=== PATIENT | male | born 2000 | race Caucasian/White ===

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

== ENCOUNTER 2021-06-04 00:34 | Emergency (ER) | payer MEDICAID ==
[~2021-06-04] VITALS: Ht 170.2 cm; Wt 77.3 kg
[2021-06-04] MEDS ORDERED: CLIN300C63 PO (03:44)
[2021-06-04] MEDS ORDERED: clindamycin 150mg capsule PO ONE (03:45)
[2021-06-04 04:07] VITALS: BP 142/117
== END 2021-06-04 04:09 | disposition home or self-care (01) ==
LOC: ER 00:35
DX: L03.116 Cellulitis of left lower limb (principal); Z88.0 Allergy status to penicillin; Z88.1 Allergy status to other antibiotic agents; Z88.2 Allergy status to sulfonamides; Z79.899 Other long term (current) drug therapy
CPT/HCPCS: 99284

== ENCOUNTER 2022-05-20 19:06 | Emergency (ER) | payer MEDICAID ==
[~2022-05-20] VITALS: Ht 170.2 cm; Wt 68.2 kg
[2022-05-20 19:10] VITALS: BP 119/81
== END 2022-05-20 21:58 | disposition left against medical advice (07) ==
LOC: ER 19:07
DX: R06.02 Shortness of breath (principal); Z53.21 Procedure and treatment not carried out due to patient leaving prior to being seen by health care provider
CPT/HCPCS: 71046; 99281; 99283

== ENCOUNTER 2022-09-25 15:05 | Emergency (ER) | payer MEDICAID | END 2022-09-25 15:29 | disposition left against medical advice (07) | LOC: ER 15:06 | DX: Z04.89 Encounter for examination and observation for other specified reasons (principal); Z53.21 Procedure and treatment not carried out due to patient leaving prior to being seen by health care provider ==

== ENCOUNTER 2022-10-10 11:00 | Emergency (ER) | payer MEDICAID ==
[~2022-10-10] VITALS: Ht 170.2 cm; Wt 55.2 kg
[2022-10-10 11:31] LABS: BASOPHILS # (AUTO) 0.1 X10'3 (0-0.2); BASOPHILS % (AUTO) 0.7 % (0-1); EOSINOPHILS # (AUTO) 0.4 X10'3 (0-0.9); EOSINOPHILS % (AUTO) 2.6 % (0-6); HEMATOCRIT 44.1 % (42.0-52.0); HEMOGLOBIN 15.3 g/dl (14.0-17.9); LYMPHOCYTES # (AUTO) 0.9 X10'3 (1.1-4.8); LYMPHOCYTES % (AUTO) 5.6 % (21-51); MEAN CORPUSCULAR HEMOGLOBIN 32.5 PG (27.0-31.0); MEAN CORPUSCULAR HGB CONC 34.6 g/dL (33.0-36.5); MEAN CORPUSCULAR VOLUME 93.8 FL (78-98); MEAN PLATELET VOLUME 9.1 FL (7.4-10.4); MONOCYTES # (AUTO) 0.9 X10'3 (0-0.9); MONOCYTES % (AUTO) 5.4 % (2-12); NEUTROPHILS # (AUTO) 13.8 X10'3 (1.8-7.7); NEUTROPHILS % (AUTO) 85.7 % (42-75); PLATELET COUNT 75 X10'3 (140-440); RED CELL DISTRIBUTION WIDTH 13.9 % (11.5-14.5); WHITE BLOOD COUNT 16.1 X10'3 (4.5-11.0)
[2022-10-10 11:52] LABS: ALANINE AMINOTRANSFERASE 35 U/L (12-78); ALBUMIN 3.2 G/DL (3.4-5.0); ALBUMIN/GLOBULIN RATIO 0.8 (1.1-1.5); ALKALINE PHOSPHATASE 180 IU/L (46-116); ANION GAP 4 (8-16); ASPARTATE AMINO TRANSFERASE 42 U/L (10-37); BLOOD UREA NITROGEN 10 MG/DL (7-18); CALCIUM 9.1 MG/DL (8.5-10.1); CHLORIDE 102 MMOL/L (99-107); CREATININE 0.77 MG/DL (0.60-1.10); GLUCOSE 97 MG/DL (70-104); POTASSIUM 4.4 MMOL/L (3.5-5.1); SODIUM 137 MMOL/L (135-145); TOTAL CARBON DIOXIDE 30.8 MMOL/L (24-32); eCRCL 118 ML/MIN; eGFR > 90 ML/MIN
--- NOTE | 2022-10-10 13:58 | NUR ---
PT NOTIFIED THIS RN THAT HE IS FEELING HIS THROAT IS INCREASINGLY SWOLLEN AND IS SOB. LUNG SOUNDS CLEAR BILATERALLY, SPO2 99% ON ROOM AIR. PT IS PROTECTING AIRWAY. VITAL SIGNS RECHECKED AND STABLE.
[2022-10-10] MEDS ORDERED: metroNIDAZOLE-Flagyl 500mg/NS 100 ML IV STA (14:44)
[2022-10-10] MEDS ORDERED: normal saline 1000ML IV soln IV ONE (14:45)
[2022-10-10] MEDS ORDERED: CefTRIAXone 2gm/D5W 50ml BAG 50 ML IV ONE (14:45)
[2022-10-10] MEDS ORDERED: iohexol 300mg/ml 100ml inj. ONE (15:07)
[2022-10-10 15:50] VITALS: BP 154/91; PULSE 94; TEMP 98.8; O2SAT 98
[2022-10-10] MEDS ORDERED: dexamethasone sod phosphate 10mg/ml inj IV STA (16:20)
[2022-10-10] MEDS ORDERED: CLIN-15 PO (16:46)
[2022-10-10] MEDS ORDERED: OXYC-145 PO (16:46)
[2022-10-10] MEDS ORDERED: DOXY-356 PO (16:46)
[2022-10-10] MEDS ORDERED: oxyCODONE/APAP 5-325mg tablet PO STA (17:25)
[2022-10-10 17:30] VITALS: RESP 20
== END 2022-10-10 17:33 | disposition home or self-care (01) ==
LOC: ER 11:00
DX: L03.211 Cellulitis of face (principal); I88.9 Nonspecific lymphadenitis, unspecified; Z85.9 Personal history of malignant neoplasm, unspecified; Z72.89 Other problems related to lifestyle; Z94.4 Liver transplant status; Z88.0 Allergy status to penicillin; Z88.1 Allergy status to other antibiotic agents; Z88.2 Allergy status to sulfonamides; Z79.2 Long term (current) use of antibiotics; Z79.899 Other long term (current) drug therapy
CPT/HCPCS: 36415; 70491; 71045; 80053; 83605; 84145; 85025; 87040; 96365; 96368; 99285; J0696; J1100; J3490; J7030; Q9967

== ENCOUNTER 2023-09-11 09:11 | Emergency (ER) | payer MEDICAID ==
[~2023-09-11] VITALS: Ht 170.2 cm; Wt 68.2 kg
[~2023-09-11 09:11] MED LIST changes: +OXYC-145 PO
[2023-09-11 09:36] VITALS: TEMP 97.2
[2023-09-11 10:30] LABS: BASOPHILS % (AUTO) 0.5 % (0-1); EOSINOPHILS # (AUTO) 0.2 X10'3 (0-0.9); HEMATOCRIT 39.4 % (42.0-52.0); HEMOGLOBIN 13.4 g/dl (14.0-17.9); LYMPHOCYTES # (AUTO) 0.6 X10'3 (1.1-4.8); LYMPHOCYTES % (AUTO) 14.1 % (21-51); MEAN CORPUSCULAR HEMOGLOBIN 31.7 PG (27.0-31.0); MEAN CORPUSCULAR HGB CONC 33.9 g/dL (33.0-36.5); MEAN CORPUSCULAR VOLUME 93.3 FL (78-98); MONOCYTES # (AUTO) 0.2 X10'3 (0-0.9); MONOCYTES % (AUTO) 4.8 % (2-12); NEUTROPHILS % (AUTO) 74.6 % (42-75); RED BLOOD COUNT 4.23 X10'6 (4.70-6.10)
[2023-09-11 10:37] LABS: APTT 27 SECONDS (22-32); INR 1.2 INR; PROTHROMBIN TIME 12.9 SECONDS (9.0-12.0)
[2023-09-11 10:38] LABS: ALANINE AMINOTRANSFERASE 402 U/L (12-78); ALBUMIN 2.5 G/DL (3.4-5.0); ALKALINE PHOSPHATASE 857 IU/L (46-116); ANION GAP 7 (8-16); ASPARTATE AMINO TRANSFERASE 317 U/L (10-37); BILIRUBIN,TOTAL 7.4 MG/DL (0.1-1.0); BLOOD UREA NITROGEN 13 MG/DL (7-18); BUN/CREATININE RATIO 17.1 (10.0-20.0); CALCIUM 8.5 MG/DL (8.5-10.1); CHLORIDE 104 MMOL/L (99-107); CREATININE 0.76 MG/DL (0.60-1.10); GLUCOSE 142 MG/DL (70-104); POTASSIUM 3.3 MMOL/L (3.5-5.1); SODIUM 139 MMOL/L (135-145); TOTAL CARBON DIOXIDE 28.3 MMOL/L (24-32); eCRCL 143 ML/MIN; eGFR > 90 ML/MIN
[2023-09-11 10:58] LABS: PLATELET COUNT 50 X10'3 (140-440)
[2023-09-11 11:00] LABS: ALBUMIN/GLOBULIN RATIO 0.7 (1.1-1.5); TOTAL PROTEIN 5.9 G/DL (6.4-8.2)
[2023-09-11] MEDS: diphenhydrAMINE 50 mg/ml inj IV ONE (11:02)
[2023-09-11] MEDS: normal saline 1000ml 1,000 ML IV ONE (11:02)
[2023-09-11] MEDS: lactulose 20gm/30ml cup PO ONE (11:03)
[2023-09-11 14:43] LABS: BILIRUBIN,URINE LARGE (Neg); CLARITY,URINE SLIGHTLY CLOUDY (Clear); COLOR,URINE YELLOW (Yellow); GLUCOSE, URINE 100 mg/dl (Neg); KETONES,URINE TRACE mg/dl (Neg); LEUKOCYTE ESTERASE ,URINE NEGATIVE (Neg); NITRITES, URINE NEGATIVE (Neg); OCCULT BLOOD,URINE NEGATIVE (Neg); PROTEIN,URINE NEGATIVE (Neg)
[2023-09-11 14:48] LABS: UA COLLECTION TYPE CLN CATCH MIDSTREAM
[2023-09-11 15:13] LABS: SQUAMOUS EPITHELIAL CELL,UR NONE SEEN /LPF (FEW)
[2023-09-11 15:14] LABS: BACTERIA,URINE NONE SEEN /HPF (Neg); CAL OXALATE CRYSTALS 1+ /HPF (NEGATIVE); RBC,URINE NONE SEEN /HPF (0-2); WBC,URINE 0-4 /HPF (0-4)
[2023-09-11] MEDS ORDERED: LACT10SO7 PO (15:30)
[2023-09-11 16:37] VITALS: BP 117/75; PULSE 58; RESP 16; O2SAT 100
[2023-09-12 17:12] LABS: HBSAG SCREEN Negative (Negative); HEP A AB, IGM Negative (Negative); HEP B CORE AB, IGM Negative (Negative); HEPATITIS C VIRUS ANTIBODY Non Reactive (Non Reactive)
== END 2023-09-11 16:42 | disposition left against medical advice (07) ==
LOC: ER 09:11
DX: K76.82 Hepatic encephalopathy (principal); R74.8 Abnormal levels of other serum enzymes; Z88.1 Allergy status to other antibiotic agents; Z88.0 Allergy status to penicillin; Z88.2 Allergy status to sulfonamides; Z79.899 Other long term (current) drug therapy; Z85.89 Personal history of malignant neoplasm of other organs and systems; Z98.890 Other specified postprocedural states
CPT/HCPCS: 36415; 76700; 80053; 80074; 81001; 82140; 85025; 85610; 85730; 96361; 96374; 99285; J1200; J7030

== ENCOUNTER 2023-11-01 21:56 | Emergency (ER) | payer MEDICAID ==
[~2023-11-01] VITALS: Ht 170.2 cm; Wt 64.1 kg
[~2023-11-01 21:56] MED LIST changes: +LACT10SO7 PO
[2023-11-01 21:59] VITALS: TEMP 97.9
[2023-11-01 22:59] VITALS: BP 133/84; PULSE 63; RESP 18; O2SAT 98
== END 2023-11-02 00:24 | disposition left against medical advice (07) ==
LOC: ER 21:57
DX: R60.0 Localized edema (principal); R17 Unspecified jaundice; Z53.21 Procedure and treatment not carried out due to patient leaving prior to being seen by health care provider

== ENCOUNTER 2024-04-17 15:13 | Emergency (ER) | payer MEDICAID ==
[~2024-04-17] VITALS: Ht 170.2 cm; Wt 64.6 kg
[2024-04-17] MEDS ORDERED: CLIN-97 PO (16:00)
[2024-04-17 16:01] LABS: EOSINOPHILS # (AUTO) 0.2 X10'3 (0-0.9); HEMOGLOBIN 13.6 g/dl (14.0-17.9); LYMPHOCYTES # (AUTO) 0.7 X10'3 (1.1-4.8)
[2024-04-17 16:03] LABS: BASOPHILS % (AUTO) 0.7 % (0-1); EOSINOPHILS % (AUTO) 3.4 % (0-6); HEMATOCRIT 38.9 % (42.0-52.0); LYMPHOCYTES % (AUTO) 15.2 % (21-51); MEAN CORPUSCULAR HGB CONC 34.9 g/dL (33.0-36.5); MEAN CORPUSCULAR VOLUME 91.5 FL (78-98); MEAN PLATELET VOLUME 9.1 FL (7.4-10.4); MONOCYTES # (AUTO) 0.4 X10'3 (0-0.9); MONOCYTES % (AUTO) 8.3 % (2-12); NEUTROPHILS # (AUTO) 3.4 X10'3 (1.8-7.7); NEUTROPHILS % (AUTO) 72.4 % (42-75); RED BLOOD COUNT 4.25 X10'6 (4.70-6.10); RED CELL DISTRIBUTION WIDTH 24.3 % (11.5-14.5); WHITE BLOOD COUNT 4.8 X10'3 (4.5-11.0)
[2024-04-17 16:20] VITALS: BP 148/92; PULSE 69; RESP 16; TEMP 98.2; O2SAT 99
[2024-04-17 16:30] LABS: ANION GAP 7 (8-16); BLOOD UREA NITROGEN 11 MG/DL (7-18); CALCIUM 8.7 MG/DL (8.5-10.1); CHLORIDE 105 MMOL/L (99-107); SODIUM 141 MMOL/L (135-145)
[2024-04-17 16:37] LABS: PLATELET COUNT 38 X10'3 (140-440)
[2024-04-17 16:50] LABS: ALBUMIN 2.2 G/DL (3.4-5.0); BUN/CREATININE RATIO 20.4 (10.0-20.0); CREATININE 0.54 MG/DL (0.60-1.10); GLUCOSE 68 MG/DL (70-104); POTASSIUM 3.1 MMOL/L (3.5-5.1); eCRCL 196 ML/MIN; eGFR > 90 ML/MIN
[2024-04-17 17:14] LABS: ANISOCYTOSIS 4+; LARGE PLATELETS FEW; MICROCYTOSIS 2+; PLATELET ESTIMATE DECREASED; TARGET CELLS 1+
== END 2024-04-17 16:21 | disposition home or self-care (01) ==
LOC: ER 15:14
DX: L03.211 Cellulitis of face (principal); Z94.4 Liver transplant status; Z88.0 Allergy status to penicillin; Z88.1 Allergy status to other antibiotic agents; Z88.2 Allergy status to sulfonamides
CPT/HCPCS: 36415; 80048; 84145; 85008; 85025; 99283

== ENCOUNTER 2024-05-04 22:05 | Emergency (ER) | payer MEDICAID ==
[~2024-05-04] VITALS: Ht 170.2 cm; Wt 63.2 kg
[~2024-05-04 22:05] MED LIST changes: +CLIN-97 PO
[2024-05-04 22:10] VITALS: BP 130/91; PULSE 70; RESP 18; O2SAT 98
== END 2024-05-05 00:13 | disposition left against medical advice (07) ==
LOC: ER 22:06
DX: R22.0 Localized swelling, mass and lump, head (principal); Z88.0 Allergy status to penicillin; Z88.1 Allergy status to other antibiotic agents; Z88.2 Allergy status to sulfonamides; Z53.21 Procedure and treatment not carried out due to patient leaving prior to being seen by health care provider

== ENCOUNTER 2024-05-13 19:36 | Emergency (ER) | payer MEDICAID ==
[~2024-05-13] VITALS: Ht 170.2 cm; Wt 61.6 kg
[2024-05-13 21:27] VITALS: BP 130/93; PULSE 72; O2SAT 100
[2024-05-13 21:28] VITALS: RESP 16
[2024-05-13 22:11] VITALS: TEMP 99.9
== END 2024-05-13 22:13 | disposition left against medical advice (07) ==
LOC: ER 19:37
DX: R51.9 Headache, unspecified (principal); Z88.0 Allergy status to penicillin; Z88.2 Allergy status to sulfonamides; Z88.1 Allergy status to other antibiotic agents; Z88.8 Allergy status to other drugs, medicaments and biological substances; Z94.4 Liver transplant status
CPT/HCPCS: 99284

== ENCOUNTER 2024-09-26 09:47 | Emergency (ER) | payer MEDICAID ==
[~2024-09-26] VITALS: Ht 170.2 cm; Wt 57.4 kg
[~2024-09-26 09:47] MED LIST changes: +CLIN-224 PO; -CLIN-97 PO
[2024-09-26 09:48] VITALS: BP 139/91; PULSE 99; RESP 16; TEMP 98.6; O2SAT 98
--- NOTE | 2024-09-26 09:59 | Physician Documentation ---
History of Present Illness Stated Complaint: ABD PAIN Primary Medical Doctor: [facility] Presents to the emergency department for evaluation of nausea and vomiting yesterday for approximately 2 hours. Denies any current nausea or vomit. Reports that he may have smoked too much marijuana mixed with tobacco frequently makes him nauseated. Denies any abdominal pain at this time. Urine output and frequency are normal. Reports that he took off work today and would like a work note. Medication Reconciliation Allergies: Coded Allergies: Penicillins (Verified Allergy, Intermediate, 05/04/24) vancomycin (Verified Allergy, Intermediate, RASH, ITCHING, 05/04/24) Sulfa (Sulfonamide Antibiotics) (Unverified Allergy, Unknown, 05/04/24) Scheduled Cetirizine HCl (Zyrtec), 1 TAB PO DAILY, (Reported) Clindamycin HCL* (Clindamycin HCL*), 1 CAP PO Q6H Escitalopram Oxalate (Escitalopram Oxalate), 1 TAB PO DAILY, (Reported) Lactulose (Lactulose), 30 ML PO DAILY Magnesium Oxide (Magnesium), 1 CAP PO Q12H, (Reported) Melatonin (Melatonin), 2 TAB PO HS, (Reported) Phytonadione (Vit K1) (Phytonadione), 2 TAB PO DAILY, (Reported) Rifaximin (Xifaxan), 1 TAB PO Q12H, (Reported) Tacrolimus (Envarsus Xr), 1 TAB PO DAILY, (Reported) Scheduled PRN Acetaminophen (Acetaminophen), 1 TAB PO BID PRN for pain, (Reported) Diphenhydramine Hcl* (Benadryl*), 25 MG PO BID PRN for anxiety, (Reported) Oxycodone HCl/Acetaminophen (Percocet 5-325 mg Tablet), 1 TAB PO TID PRN PRN for pain Past Medical History Past Medical History: *CANCER* Past Surgical History: other Other Past Surgical History: Liver transplant Alcohol Use: Sober Drug Use: none Lives with: Mother, Father Lives In: Home Occupation: student Review of Systems ROS As stated above in the HPI, otherwise all systems are reviewed and negative. Physical Exam Physical Exam VITALS: Reviewed and as above. GENERAL: Alert, no apparent distress. HEENT: Normocephalic, atraumatic, PERRL, EOMI, dry mucosa, no erythema RESPIRATORY: Lungs clear, normal breath sounds, no respiratory distress. CHEST: No accessory muscle use, no retractions CV: Regular rate, rhythm, no edema, no murmur, No: JVD GI: Soft, non-tender, bowels sounds present, no rebound, guarding, or rigidity BACK: No CVA tenderness, or swelling MUSCULOSKELETAL No deformities, no edema SKIN: Warm and dry, no rash NEURO: Oriented x4, No motor or sensory deficit PSYCH: Normal mood and affect, no agitation Medical Decision Making Findings General medical evaluation with no abnormalities or concerns at this time. Work note provided. Departure Disposition: HOME / SELF CARE / HOMELESS Impression: Primary Impression: Encounter for medical assessment Condition: Stable Discharge Instructions: Nausea and Vomiting, Adult, [id number] Departure Forms: Excuse form Work or School Excused From: Work Excuse beginning now through the following date: Sep 26, 2024 May Return but still avoid physical Activity from now until: Sep 27, 2024 May Return to full physical activity as of: Sep 27, 2024 Referrals: NO PRIMARY CARE PROVIDER (PCP) Education Educated regarding: treatment, need for follow up HOUSTON GEORGE Sep 26, 2024 09:59
== END 2024-09-26 10:06 | disposition home or self-care (01) ==
LOC: ER 09:47
DX: R11.2 Nausea with vomiting, unspecified (principal); Z88.0 Allergy status to penicillin; Z88.1 Allergy status to other antibiotic agents; Z88.2 Allergy status to sulfonamides; Z79.899 Other long term (current) drug therapy
CPT/HCPCS: 99281

== ENCOUNTER 2024-10-20 00:41 | Emergency (ER) | payer MEDICAID ==
[~2024-10-20] VITALS: Ht 172.7 cm; Wt 50.8 kg
[2024-10-20 00:51] VITALS: BP 151/101; PULSE 80; TEMP 98.6; O2SAT 99
--- NOTE | 2024-10-20 01:16 | Physician Documentation ---
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 No obvious trigger provocation. He does have known history of poor dentition. Pain got markedly worse for the last day or so. He noticed some pus coming out from under the crown. Pain radiates into his ear. Denies any difficulty opening his mouth, any voice changes. Denies any difficulty breathing. No fever or chills. No headache. No vision changes. Compliant with all his meds. Smokes marijuana. Denies drug use. Medication Reconciliation Allergies: Coded Allergies: Penicillins (Verified Allergy, Intermediate, 10/20/24) vancomycin (Verified Allergy, Intermediate, RASH, ITCHING, 10/20/24) Sulfa (Sulfonamide Antibiotics) (Unverified Allergy, Unknown, 10/20/24) Scheduled Cetirizine HCl (Zyrtec), 1 TAB PO DAILY, (Reported) Clindamycin HCL* (Clindamycin HCL*), 1 CAP PO Q6H Escitalopram Oxalate (Escitalopram Oxalate), 1 TAB PO DAILY, (Reported) Lactulose (Lactulose), 30 ML PO DAILY Magnesium Oxide (Magnesium), 1 CAP PO Q12H, (Reported) Melatonin (Melatonin), 2 TAB PO HS, (Reported) Phytonadione (Vit K1) (Phytonadione), 2 TAB PO DAILY, (Reported) Rifaximin (Xifaxan), 1 TAB PO Q12H, (Reported) Tacrolimus (Envarsus Xr), 1 TAB PO DAILY, (Reported) Scheduled PRN Acetaminophen (Acetaminophen), 1 TAB PO BID PRN for pain, (Reported) Diphenhydramine Hcl* (Benadryl*), 25 MG PO BID PRN for anxiety, (Reported) Oxycodone HCl/Acetaminophen (Percocet 5-325 mg Tablet), 1 TAB PO TID PRN PRN for pain Past Medical History Past Medical History: *CANCER* Past Surgical History: other Other Past Surgical History: Liver transplant Alcohol Use: Sober Drug Use: none Lives with: Mother, Father Lives In: Home Occupation: student Review of Systems ROS 10 point review of systems was performed and unless noted above in HPI is negative for acute process/complaint. Physical Exam Vital Signs: Temperature: 98.6, Source: Temporal, Heart Rate: 80, Respiratory Rate: 15, BP: 151/101, Pulse Oximetry: 99, Weight: 50.750 Physical Exam Physical examination: GENERAL: Awake, alert, oriented, GCS 15, no apparent distress, chronically ill appearing, answers questions, follows commands appropriately. HEENT: Atraumatic, normocephalic, pupils equal, extraocular muscles intact Active gross movements, sclerae mildly icteric, mucus membranes moist, no stridor. NECK: Midline, no JVD CARDIOVASCULAR: Good skin perfusion without evidence of pallor, mottling. PULMONARY: Nonlabored, symmetric chest rise, no audible wheezing, no accessory muscle use, no respiratory distress, speaking in full sentences. GASTROINTESTINAL: Not distended. NEUROLOGIC: Lucid with normal mental status. Normal facial symmetry. Moves all extremities symmetrically and with purpose. No truncal ataxia. Speech is fluid without evidence of dysarthria or aphasia, no focal deficits appreciated. EXTREMITIES: Acute deformities Skin: warm, dry, noticeable jaundice PSYCHIATRIC: Normal affect, normal insight, normal concentration. Focused exam: [Poor dentition noted. There is a crown on the left lower premolar and severe caries on the left 1st molar. No abscess. No fluctuance. No tenderness to palpation of buccal gumline. There is no trismus. No floor of the mouth elevation. No hot potato voice. No drooling. No submandibular erythema.] Progress Results/Orders Results/Orders Vital Signs 10/20/24 00:51 Temp 98.6 Pulse 80 Resp 15 B/P (MAP) 151/101 Pulse Ox 99 Medical Decision Making Findings Facility Status: ED Holds, [facility] process The plan was discussed with the patient, who demonstrates clear understanding of the plan and is in agreement with the plan unless otherwise noted in the chart. All questions have been answered, all concerns were addressed unless otherwise documented. I was available throughout their ED stay for frequent reassessment and questions. Differential Diagnoses (considered and possible or likely): [Dental pain, dental infection, dental abscess, less likely osteomyelitis of the jaw, clinically not consistent with a Alen's angina, mastoiditis] ??Differential Diagnoses (considered and unlikely, not requiring evaluation currently): [No evidence of peritonsillar abscess, unlikely retropharyngeal abscess.] MDM Data Please see [facility] for the following: Independent Historians and external Records Review. Historian: [Patient] Independent Historians: ?[Record review] Medication Management: [Reviewed medication list] Social History and determinants: [Reviewed] Please see the body of the note for the following: Any independent interpretations of ECG, imaging studies. All vitals signs/haemodynamics, ordered tests were independently reviewed and interpreted by myself. Nursing triage complaint and vitals reviewed, additional nursing notes were reviewed as available and I agree unless otherwise noted or documented in contra diction in the chart Vital Signs: Independently reviewed Labs: Independently interpreted Imaging: Independently interpreted Old Medical Records: Independently reviewed, see [facility] for relevant summary and information Pulse Oximetry: [99%] interpreted as [normal on room air] by me F Additionally notably showing: [Hemodynamically stable] Tests considered but not ordered include: [Hematologic workup and imaging has been considered but does not appear to be necessary given clinical nature of diagnosis] Social Determinants of Health Impact: Patient was evaluated in [facility] [place] access to healthcare due to below par ratio of patient to medical providers. [] Comorbid Conditions Impacting Present Evaluation and Care/Treatment: [Multiple, see list] Management Discussions with other Healthcare Providers: [None] Treatment and Disposition Medication Management (Given or considered): [Initial dose of antibiotics, pain management]. See EMR for details Consideration for Hospitalization/Escalation/Deescalation of Care: Admission for observation has been considered, [however the patient is able to tolerate p.o., their symptoms are controlled, they are able to rely on oral medications, and their chief complaint/diagnosis can be managed on outpatient basis.] ?ED Course:?[No clinical deterioration.] ?Shared decision making:?[Patient is hemodynamically stable for discharge home with follow with their primary care provider. [ ] Specific and cautious return precautions provided and discussed with full understanding. Any incidental findings were also discussed and follow up recommendations given. [] All questions answered. Patient/family were able to verbalize back return precautions. Patient/family agree to plan. Copies of imaging and laboratory studies were provided.] Code status:?FULL Please see the full Electronic Medical Record for full details of nursing documentation, medications list, other records of complete past medical history and conditions, vital signs, laboratory studies, and any radiologic study interpretations by radiologists. Portions of this note were completed using Retrevo dictation software and as a result there may exist minor errors in spelling. I have reviewed elements of past family and social history and agree as included in note. Departure Disposition: HOME / SELF CARE / HOMELESS Impression: Primary Impression: Toothache Additional Impression: Dental abscess Condition: Improved Discharge Instructions: Dental Pain Additional Instructions: Return to emergency department immediately if his symptoms worsen, return if they do not begin to improve after several days of antibiotics. Referrals: NO PRIMARY CARE PROVIDER (PCP) Prescriptions Clindamycin HCl (Clindamycin HCl) 150 Mg Capsule 3 CAP PO Q8H for 10 Days, #90 CAP Prov: CATHRYN FERRER DO 10/20/24 Naproxen (Naproxen) 375 Mg Tablet 1 TAB PO Q12H for pain for 30 Days, #60 TAB 0 Refills with food Prov: CATHRYN FERRER DO 10/20/24 ONDANSETRON ODT 4mg tablet (ONDANSETRON ODT) 4 Mg Tab.rapdis 1 TAB PO Q6H PRN PRN for nausea/vomiting for 4 Days, #16 TAB 0 Refills Prov: CATHRYN FERRER DO 10/20/24 Hydrocodone Bit/Acetaminophen 5/325 MG ([place] 5/325 MG) 5 Mg/325 Mg Tablet 1 TAB PO Q6H PRN for pain, #14 TAB Prov: CATHRYN FERRER DO 10/20/24 Education Educated: Patient Educated regarding: diagnosis, treatment, prognosis, need for follow up Signature Scribe Signature: No scribe Attestation: This note accurately reflects clinical decisions, work performed by myself, DO CARISSA Dela Cruz NICHOLAS M DO Oct 20, 2024 01:16
[2024-10-20] MEDS ORDERED: NAPR-1166 PO (01:29)
[2024-10-20] MEDS ORDERED: CLIN-14 PO (01:29)
[2024-10-20] MEDS ORDERED: HYDR-3965 PO (01:29)
[2024-10-20] MEDS ORDERED: ONDA-243 PO (01:29)
[2024-10-20] MEDS: ketorolac trometh 30MG/ML vial 30 MG/ML VIAL IM ONE (01:50)
[2024-10-20 01:51] VITALS: RESP 16
[2024-10-20] MEDS: HYDROcodone/acetaminophen 5mg/325mg tablet PO ONE (01:51)
[2024-10-20] MEDS: ciprofloxacin 250mg tablet PO ONE (01:51)
== END 2024-10-20 02:01 | disposition home or self-care (01) ==
LOC: ER 00:42
DX: K04.7 Periapical abscess without sinus (principal); F12.90 Cannabis use, unspecified, uncomplicated; Z88.0 Allergy status to penicillin; Z88.1 Allergy status to other antibiotic agents; Z88.2 Allergy status to sulfonamides; Z88.8 Allergy status to other drugs, medicaments and biological substances
CPT/HCPCS: 96372; 99284; J1885

== ENCOUNTER 2025-01-17 10:43 | Emergency (ER) | payer MEDICAID ==
[~2025-01-17] VITALS: Ht 170.2 cm; Wt 61.6 kg
[~2025-01-17 10:43] MED LIST changes: +NAPR-1166 PO; +ONDA-243 PO
[2025-01-17 11:44] LABS: LEUKOCYTE ESTERASE ,URINE LARGE (Neg); NITRITES, URINE POSITIVE (Neg); OCCULT BLOOD,URINE MODERATE (Neg); UA COLLECTION TYPE CLN CATCH MIDSTREAM
[2025-01-17 11:52] LABS: SQUAMOUS EPITHELIAL CELL,UR FEW /LPF (FEW)
[2025-01-17 11:53] LABS: WBC CLUMPS,URINE MANY /HPF (NEGATIVE)
[2025-01-17] MEDS ORDERED: NITR100C11 PO (12:48)
--- NOTE | 2025-01-17 12:48 | Physician Documentation ---
History of Present Illness ~ Chief Complaint: Blood in Urine Stated Complaint: BLOOD IN URINE Time Seen by MD: 11:41 OK to notify your PCP?: Yes Primary Medical Doctor: NICOLAS BLACKWELL Source: patient Mode of Arrival: POV Exam Limitations: no limitations HPI He reports having dark urine for the past few months but he attributed this to his liver disease. Pt presents to ED for blood in urine since last night. Pt also complaining of right flank pain and bladder pain since last night also. Pt is in stage 1 liver failure. Denies any fevers, nausea, vomiting or diarrhea. Medication Reconciliation Allergies: Coded Allergies: Penicillins (Verified Allergy, Intermediate, 01/17/25) vancomycin (Verified Allergy, Intermediate, RASH, ITCHING, 01/17/25) Sulfa (Sulfonamide Antibiotics) (Unverified Allergy, Unknown, 01/17/25) Scheduled Cetirizine HCl (Zyrtec), 1 TAB PO DAILY, (Reported) Clindamycin HCL* (Clindamycin HCL*), 1 CAP PO Q6H Escitalopram Oxalate (Escitalopram Oxalate), 1 TAB PO DAILY, (Reported) Lactulose (Lactulose), 30 ML PO DAILY Magnesium Oxide (Magnesium), 1 CAP PO Q12H, (Reported) Melatonin (Melatonin), 2 TAB PO HS, (Reported) Naproxen (Naproxen), 1 TAB PO Q12H Nitrofurantoin/Nitrofuran Mac (Nitrofurantoin [place]-Mcr 100 Mg), 1 CAP PO Q12H Phytonadione (Vit K1) (Phytonadione), 2 TAB PO DAILY, (Reported) Rifaximin (Xifaxan), 1 TAB PO Q12H, (Reported) Tacrolimus (Envarsus Xr), 1 TAB PO DAILY, (Reported) Scheduled PRN Acetaminophen (Acetaminophen), 1 TAB PO BID PRN for pain, (Reported) Diphenhydramine Hcl* (Benadryl*), 25 MG PO BID PRN for anxiety, (Reported) ONDANSETRON ODT 4mg tablet (Ondansetron Odt), 1 TAB PO Q6H PRN PRN for nausea/vomiting Oxycodone HCl/Acetaminophen (Percocet 5-325 mg Tablet), 1 TAB PO TID PRN PRN for pain Past Medical History Past Medical History: *CANCER* Past Surgical History: other Other Past Surgical History: Liver transplant Alcohol Use: Sober Drug Use: none Lives with: Mother, Father Lives In: Home Occupation: student Review of Systems All Other Systems at this time: Reviewed and Negative Physical Exam Vital Signs: RN Vital Signs have been reviewed: Yes, Temperature: 98.5, Source: Oral, Heart Rate: 90, Respiratory Rate: 18, BP: 154/94, Pulse Oximetry: 99, Weight: 61.600 Oxygen Flow Rate: 0 Pulse Oximetry Reflects: adequate oxygenation Physical Exam General: Alert, no distress. HEENT: No injection, moist mucous membranes. icteric sclera bilaterally. Neck: Full range of motion. Respiratory: No respiratory distress, equal chest rise and fall. Chest: No accessory muscle use. Cardiovascular: Regular rate and rhythm. Back: No CVA tenderness. Gastrointestinal: Nondistended. Extremities: Normal range of motion, no deformity. Neurologic: Oriented x4. Psychiatric: Normal mood and affect. Skin: warm and dry. Jaundice. Progress Results/Orders Reviewed/noted all lab results: Yes Results/Orders Completed Orders - IZABEL STONE [employer]STRU[employer] FACILITATOR Nitrofur Sioux/Nitrofuran Macr (Macrobid (01/17/25 12:50) Medications Received in ER Medications (Trade) Dose Ordered Sig/Ollie Route PRN Reason Start Time Stop Time Status Last Admin Dose Admin (MacroBID capsule) 100 mg ONCE ONCE PO 01/17/25 12:50 01/17/25 12:52 DC 01/17/25 12:57 100 MG Vital Signs 01/17/25 01/17/25 10:57 13:05 Temp 98.5 98.5 Pulse 90 71 Resp 18 16 B/P (MAP) 154/94 155/72 Pulse Ox 99 99 O2 Flow Rate 0 Laboratory Tests Test 01/17/25 11:01 Urine Specimen Description Cln catch midstream Urine Color Nika Urine Clarity Turbid Urine pH 7.0 Urine Specific [place] 1.020 Urine Protein >=300 H Urine Glucose (UA) 100 H Urine Ketones Trace H Urine Occult Blood Moderate H Urine Nitrite Positive H Urine Bilirubin Large Urine Urobilinogen >=8.0 H Urine Leukocyte Esterase Large H Urine RBC Tntc Urine WBC Tntc H Urine WBC Clumps Many Urine Squamous Epithelial Cells Few Urine Bacteria 4+ Urine Culture Indicated Indicated Volume Urine Centrifuged 10 ml Urine Comment Microbiology Date/Time Source Procedure Growth Status 01/17/25 11:53 Urine Clean Catch Midstream Urine Culture - Preliminary Culture received. Resulted Medical Decision Making Additional information obtaine: family Findings Physical exam is unremarkable except for jaundice of the skin and sclera. He has a history of liver failure. His urinalysis is positive for UTI. We gave bed here in the department in the rest sent to the pharmacy. We did do a urine culture and we will notify patient if we need to do change antibiotics. He does not have any known exposure to UTIs or testicular pain to rule out prostatitis. Urinary Diff Dx:Considerations: Include: Pyelonephritis, Renal failure, Renal infarction, Other Genital Diff Dx:Considerations: Include: Epididymitis, Testicular torsion, Torsion-epididymis, Urinary retention, Urethritis-chlamydial, Urethritis- gonococcal Departure Disposition: 01 HOME / SELF CARE / HOMELESS Impression: Primary Impression: UTI (urinary tract infection) Condition: Stable Discharge Instructions: Urinary Tract Infection, Adult Additional Instructions: Take all antibiotics as prescribed. Drink plenty of water. Your urine was sent for culture which takes 3 days to get the results. If we need to change your antibiotic to something else, we will contact you. Follow up with your regular doctor within the next week. Referrals: NO PRIMARY CARE PROVIDER (PCP) Prescriptions Nitrofurantoin/Nitrofuran Mac (Nitrofurantoin Sioux-Mcr 100 Mg) 100 Mg Capsule 1 CAP PO Q12H for 7 Days, #14 CAP 0 Refills Prov: IZABEL STONE 01/17/25 Education Educated: Patient Educated regarding: diagnosis, treatment, prognosis, need for follow up Additional Comment Medical Screen Exam This patient recieved a medical screening examination. After reviewing the individual's medical complaints with presenting symptoms and performing an appropriate physical examination, it was determined that no immediate life- threatening emergency medical condition is present. This individual is also not a women having contractions. Signature Scribe Signature: . Attestation: Scribed for Izabel Stone by Izabel Stone - KATHRYN . 01/17/25 18:13 Parts of this note were created using [employer] voice recognition software program. While efforts were made to correct any mistakes made by this voice recognition software program, nonsensical phrases may remain in this note. In addition, there may be errors and syntax, grammar, content and spelling. IZABEL STONE [facility] Jan 17, 2025 12:48
[2025-01-17] MEDS: nitrofuran monohydrate/nitrofuran macrocrysal 100 MG (MacroBID) capsule PO ONE (12:57)
[2025-01-17 13:05] VITALS: BP 155/72; PULSE 71; RESP 16; TEMP 98.5; O2SAT 99
== END 2025-01-17 13:01 | disposition home or self-care (01) ==
LOC: ER 10:44
DX: N39.0 Urinary tract infection, site not specified (principal); Z88.0 Allergy status to penicillin; Z88.1 Allergy status to other antibiotic agents; Z88.2 Allergy status to sulfonamides; Z79.899 Other long term (current) drug therapy
CPT/HCPCS: 81001; 87077; 87088; 87186; 99283